=== PATIENT | male | born 1965 | race Caucasian/White ===

== ENCOUNTER 2019-04-15 22:15 | Emergency (ER) | payer BC ==
[2019-04-15 22:46] LABS: Bilirubin Negative (Negative); Blood, Urine Moderate (Negative); Clarity Clear (Clear); Glucose, Urine (Dipstick) 500 mg/dL (Negative); Leukocyte Negative (Negative); Nitrite Negative (Negative); Protein, Urine (Dipstick) 30 mg/dL (Neg-Trace); Urobilinogen 0.2 mg/dL (Less than 2)
[2019-04-15 22:47] LABS: Bacteria/HPF None Seen HPF (None Seen); Squamous Epithelial 0-3 HPF (0-3); WBC/HPF 0-3 HPF (0-3)
[2019-04-15] MEDS ORDERED: Tamsulosin HCl 0.4 MG CAP ONE (22:50)
[2019-04-15] MEDS ORDERED: Morphine 4 MG/ML VIAL ONE (22:50)
[2019-04-15] MEDS ORDERED: Ondansetron PF 4 MG/2 ML Vial ONE (22:50)
[2019-04-15] MEDS ORDERED: Sodium Chloride 0.9% 1,000 ML ONE (22:50)
[2019-04-15 22:56] LABS: #Basophils 0.1 thou/uL (0.0-0.2); #Eosinphils 0.1 thou/uL (0.0-0.7); #Lymphocytes 1.6 thou/uL (1.20-3.40); #Monocytes 0.5 thou/uL (0.11-0.59); #Neutrophils 10.5 thou/uL (1.40-6.50); %Basophils 0.6 % (0.0-1.0); %Eosinophils 0.6 % (0.0-10.0); %Lymphocytes 12.4 % (21.0-51.0); %Monocytes 3.9 % (0.0-10.0); %Neutrophils 82.5 % (42.0-75.0); Hemoglobin 15.4 g/dL (14.0-18.0); Mean Corpuscular HGB CONC 34.8 g/dL (32.0-36.0); Mean Corpuscular Hemoglobin 29.2 pg (27.0-31.0); Mean Corpuscular Volume 83.7 fL (78.0-98.0); Mean Platelet Volume 6.9 fL (7.4-10.4); Platelet Count 191 thou/uL (130-400); RBC Distribution Width 12.3 % (11.5-14.5); Red Blood Cell (RBC) Count 5.28 mill/uL (4.70-6.10); White Blood Cell (WBC) Count 12.7 thou/uL (4.8-10.8)
--- NOTE | 2019-04-15 23:10 | CT ---
CT ABDOMEN AND PELVIS WITHOUT CONTRAST: CLINICAL HISTORY: Left flank pain. COMPARISON: No prior imaging comparison FINDINGS: A punctate distal left ureteral calculus, 2-3 mm in size, at the distal left ureter, just proximal to the left UVJ, does result in mild left obstructive uropathy, with left perinephric and periureteral fat stranding. No additional urolithiasis is seen. Hepatic steatosis with relative sparing near the gallbladder fossa. Incomplete evaluation of bowel, lymph nodes, and vasculature, on the basis of noncontrast imaging. Punctate calcification is seen at the head of the atrophic pancreas. Nonspecific mosaic attenuation of the imaged lung bases is see n. There is colonic diverticulosis. IMPRESSION: 1. Punctate, 2 to 3 mm, obstructing distal left ureteral calculus. 2. Hepatic steatosis. Transcribed Date/Time: 04/15/2019 11:23 PM
[2019-04-15 23:15] LABS: ALT (SGPT) 21 U/L (8-55); AST (SGOT) 19 U/L (5-34); Alkaline Phosphatase 112 U/L (40-150); Anion Gap 15 mmol/L (10-20); BUN (Urea Nitrogen) 15 mg/dL (8.4-25.7); Bilirubin, Total 0.6 mg/dL (0.2-1.2); CK (CPK) 91 U/L (30-200); Calc. Creatinine Clearance 0 mL/min (70-130); Calcium 8.9 mg/dL (7.8-10.44); Carbon Dioxide 23 mmol/L (22-29); Chloride 102 mmol/L (98-107); Estimated GFR-MDRD 59; Glucose 316 mg/dL (70-105); Sodium 136 mmol/L (136-145)
[2019-04-15 23:16] LABS: CKMB 1.7 ng/mL (0-6.6)
[2019-04-15] MEDS ORDERED: Metoprolol Tartrate 50 MG TAB ONE (23:29)
[2019-04-15] MEDS ORDERED: Aspirin 325 MG TAB ONE (23:30)
== END 2019-04-16 00:14 | disposition short-term general hospital (02) ==
LOC: MADERS 22:15
DX: N23 Unspecified renal colic (principal); R79.89 Other specified abnormal findings of blood chemistry; E11.9 Type 2 diabetes mellitus without complications; I10 Essential (primary) hypertension; Z79.899 Other long term (current) drug therapy
CPT/HCPCS: 74176; 80053; 81003; 81015; 82550; 82553; 84484; 85025; 93005; 96361; 96374; 96375; J2270; J2405; J7050

== ENCOUNTER 2020-04-22 18:36 | Emergency (ER) | payer BC ==
[2020-04-22 20:01] LABS: #Basophils 0.2 thou/uL (0.0-0.2); #Eosinphils 0.2 thou/uL (0.0-0.7); #Lymphocytes 2.5 thou/uL (1.20-3.40); #Monocytes 0.9 thou/uL (0.11-0.59); #Neutrophils 12.2 thou/uL (1.40-6.50); %Eosinophils 1.2 % (0.0-10.0); %Lymphocytes 15.6 % (21.0-51.0); %Monocytes 5.8 % (0.0-10.0); %Neutrophils 76.4 % (42.0-75.0); Mean Corpuscular HGB CONC 31.6 g/dL (32.0-36.0); Mean Corpuscular Hemoglobin 27.2 pg (27.0-31.0); Mean Corpuscular Volume 86.1 fL (78.0-98.0); Mean Platelet Volume 6.2 fL (7.4-10.4); Platelet Count 359 thou/uL (130-400); RBC Distribution Width 13.8 % (11.5-14.5); Red Blood Cell (RBC) Count 4.79 mill/uL (4.70-6.10); White Blood Cell (WBC) Count 15.9 thou/uL (4.8-10.8)
[2020-04-22] MEDS ORDERED: Sodium Chloride 0.9% 1,000 ML ONE (20:03)
--- NOTE | 2020-04-22 20:03 | RAD ---
EXAM: Two views chest PROVIDED CLINICAL HISTORY: Fever COMPARISON: 03/31/2020 FINDINGS: Dual lead left subclavian AICD device remains in place. Cardiac silhouette remains enlarged. The pulm onary vasculature is within normal limits. The inferior aspect of each lateral costophrenic angle is excluded from view. Lungs are otherwise clear. No interval change from prior study. IMPRESSION: 1. No acute cardiopulmonary process. 2. Cardiomegaly..
[2020-04-22 20:14] LABS: ALT (SGPT) 39 U/L (8-55); AST (SGOT) 34 U/L (5-34); Albumin 3.6 g/dL (3.5-5.0); Alkaline Phosphatase 156 U/L (40-110); Anion Gap 17 mmol/L (10-20); BUN (Urea Nitrogen) 16 mg/dL (8.4-25.7); Bilirubin, Total 0.6 mg/dL (0.2-1.2); Calc. Creatinine Clearance 0 mL/min (70-130); Calcium 8.8 mg/dL (7.8-10.44); Carbon Dioxide 22 mmol/L (22-29); Chloride 102 mmol/L (98-107); Estimated GFR-MDRD 70; Globulin 4.2 g/dL (2.4-3.5); Glucose 189 mg/dL (70-105); Potassium 4.4 mmol/L (3.5-5.1); Protein, Total 7.8 g/dL (6.0-8.3); Sodium 137 mmol/L (136-145)
[2020-04-22] MEDS ORDERED: Cefepime 2 GM VIAL ONE (20:25)
[2020-04-22] MEDS ORDERED: Sodium Chloride 0.9% 100 ML ONE (20:25)
[2020-04-22] MEDS ORDERED: Aspirin 325 MG TAB ONE (20:25)
[2020-04-22] MEDS ORDERED: Vancomycin 1.5 GRAM/300 ML BAG ONE (21:02)
[2020-04-22 21:33] LABS: Bilirubin Negative (Negative); Blood, Urine Negative (Negative); Clarity Clear (Clear); Glucose, Urine (Dipstick) 500 mg/dL (Negative); Ketone, Urine Negative (Negative); Leukocyte Negative (Negative); Nitrite Negative (Negative); Protein, Urine (Dipstick) Negative (Neg-Trace); Urobilinogen 0.2 mg/dL (Less than 2)
== END 2020-04-22 22:21 | disposition short-term general hospital (02) ==
LOC: MADERS 18:36
DX: R50.9 Fever, unspecified (principal); Z95.0 Presence of cardiac pacemaker; I10 Essential (primary) hypertension; E11.9 Type 2 diabetes mellitus without complications; Z87.442 Personal history of urinary calculi; Z79.82 Long term (current) use of aspirin; Z79.899 Other long term (current) drug therapy
CPT/HCPCS: 71046; 80053; 81003; 82553; 83605; 83880; 84484; 85025; 86140; 87040; 93005; 96365; 96367; J0692; J3370; J3490; J7050